=== PATIENT | female | born 1955 | race Caucasian/White ===

== ENCOUNTER 2017-07-01 07:45 | Day surgery (SDC) | payer OTHER ==
[2017-07-01] MEDS ORDERED: LIDOCAINE HCL 1% MPF SOL ONE (07:58)
[2017-07-01] MEDS ORDERED: PROPOFOL 500 MG/50 ML EMU IV ONE ×2 (07:58)
[2017-07-01 09:40] VITALS: TEMP 96.9
[2017-07-01 09:50] VITALS: PULSE 60
[2017-07-01 10:07] VITALS: BP 117/72; RESP 18; O2SAT 97
== END 2017-07-01 10:13 | disposition home or self-care (01) | DRG 951 ==
LOC: SURG 07:45
PROVIDERS: ATTEND Internal Medicine Gastroenterology
DX: Z12.11 Encounter for screening for malignant neoplasm of colon (principal); D12.3 Benign neoplasm of transverse colon; K57.30 Diverticulosis of large intestine without perforation or abscess without bleeding; K64.8 Other hemorrhoids; R93.3 Abnormal findings on diagnostic imaging of other parts of digestive tract
CPT/HCPCS: 99001; J2001; J2704